=== PATIENT | female | born 1965 | race Caucasian/White ===

== ENCOUNTER 2022-10-07 11:08 | Outpatient (CLI) | payer OTHER, SELFPAY ==
[2022-10-07 09:51] LABS: Albumin* 4.5 g/dL (3.3-5.0); Chloride* 103 mmol/L (96-114); Sodium* 139 mmol/L (135-149)
[2022-10-07 09:52] LABS: Potassium* 4.1 mmol/L (3.6-5.1)
[2022-10-07 09:53] LABS: Cholesterol* 174 mg/dL (90-199)
[2022-10-07 09:54] LABS: Alanine Aminotransferase* 53 U/L (4-35); Alkaline Phosphatase* 96 U/L (40-150); Aspartate Amino Transferase* 39 U/L (12-35); Bilirubin Direct* 0.2 mg/dL (0.0-0.5); Bilirubin Total* 0.6 mg/dL (0.1-1.5); Blood Urea Nitrogen* 12 mg/dL (7-30); Calcium* 9.2 mg/dL (8.4-10.6); Carbon Dioxide* 28 mmol/L (20-32); Creatinine* 0.6 mg/dL (0.5-1.5); Estimated Glomerular Filt Rate 104 ml/min; Glucose* 95 mg/dL (60-115); Total Protein* 7.1 g/dL (6.0-8.3); Triglycerides* 146 mg/dL (40-149)
[2022-10-07 09:55] LABS: HDL Cholesterol* 61 mg/dL (>=50); LDL Cholesterol Calculated 84 mg/dL (<100)
== END 2022-10-07 11:09 | disposition home or self-care (01) ==
PROVIDERS: PCP Family Medicine; Visit Provider Family Medicine
DX: Z01.419 Encounter for gynecological examination (general) (routine) without abnormal findings (principal); E78.5 Hyperlipidemia, unspecified; E66.9 Obesity, unspecified; I10 Essential (primary) hypertension; K76.0 Fatty (change of) liver, not elsewhere classified
CPT/HCPCS: 80053; 80061; 80076

== ENCOUNTER 2022-12-30 21:04 | Outpatient (CLI) | payer OTHER, SELFPAY ==
--- NOTE | 2023-01-19 08:53 | W.PM.SLEEP ---
Sleep Study Details Details Interpreting Provider: Chago Date of Sleep Study: 12/30/22 Sleep Study Details: STUDY TYPE:? Hospital ? BMI:? 36.4 ORDERING PROVIDER:? Jaye INDICATION:? Concerns about sleep apnea ? SLEEP SUMMARY:? 422 total minutes of sleep time, efficiency 84.7, arousal index 7.4 RESPIRATORY SUMMARY:? AHI 9.5, RDI 12.2 Supine AHI 3 no supine REM sleep was seen Nonsupine AHI 10.2, nonsupine REM AHI 21.7 PERIODIC LIMB MOVEMENTS OF SLEEP:? None CARDIAC:? Awake 90, asleep 85, PVCs were noted IMPRESSION:? Mild obstructive sleep apnea dependent on the nonsupine position RECOMMENDATION: Positional therapy would be reasonable to consider however I would favor trial of treatment with either AutoSet CPAP or dental appliance. Weight loss is also indicated.
== END 2022-12-30 21:05 | disposition home or self-care (01) ==
LOC: SLEEP 21:04
PROVIDERS: PCP Family Medicine; Visit Provider Family Medicine
DX: G47.33 Obstructive sleep apnea (adult) (pediatric) (principal)
CPT/HCPCS: 95810

== ENCOUNTER 2023-04-21 14:51 | Outpatient (CLI) | payer OTHER, SELFPAY ==
--- NOTE | 2023-04-21 15:00 | CRLHL7_ITS ---
For Patients: As a result of the Cures Act, medical imaging exams and procedure reports are released immediately into your electronic medical record. You may view this report before your referring provider. If you have questions, please contact your health care provider. BILATERAL SCREENING MAMMOGRAM WITH COMPUTER-AIDED DETECTION AND TOMOSYNTHESIS TECHNIQUE: CC and MLO views were obtained. These mammographic images have been obtained using full-field digital technique. These mammographic images were interpreted with the benefit of computer-aided detection. Breast Tomosynthesis was used in this interpretation. COMPARISON FILM: 11/19/21, 11/08/19, 12/20/17. FINDINGS: There are scattered areas of fibroglandular density IMPRESSION: There is no radiographic evidence for malignancy. ASSESSMENT: BI-RADS Category 1: Negative RECOMMENDATION: Routine screening mammogram in 1 year. A lay language report of this examination will be provided to the patient. Marco Lundy M.D. Diagnostic Radiologist [email or web address] Transcribed: 4:58 p.mSeth zarco/Dictated by: Marco Lundy MD @ 04/22/2023 1:10:00 PM (Electronically Signed)
== END 2023-04-21 14:52 | disposition home or self-care (01) ==
PROVIDERS: PCP Family Medicine; Visit Provider Family Medicine
DX: Z12.31 Encounter for screening mammogram for malignant neoplasm of breast (principal)
CPT/HCPCS: 77063; 77067

== ENCOUNTER 2023-10-20 08:01 | Outpatient (CLI) | payer OTHER, SELFPAY ==
--- OUTSIDE RECORDS SUMMARY | 2023-10-25 20:32 | XMS_ITS | Clinical Summary ---
Author Name Unknown Organization [facility] Address [place], [place] [address] Care Team Providers Care Maintenance Supervisor Electrical Name Role Phone Ricardo Barros MD Primary Care Provider Allergies Active Allergy Reactions Criticality Noted Date Comments Clindamycin Rash 12/18/2014 Active Problems Problem Noted Date Diagnosed Date Family history of malignant neoplasm of gastrointestinal tract 12/18/2014 Overview: Colonoscopy 11/2014 rectal polyp repeat in 5 years Social History Tobacco Use Types Packs/Day Years Used Date Smoking Tobacco: Former Alcohol Use Standard Drinks/Week Comments Not Asked 0 (1 standard drink = 0.6 oz pur e alcohol) Sex and Gender Information Value Date Recorded Sex Assigned at Not on file Gender Identity Not on file Sexual Orientation Not on file Obstetrics History Last Filed Vital Signs Vital Sign Reading Time Taken Comments Blood Pressure 117/78 12/18/2014 9:24 AM TIP BANDER Pulse 90 12/18/2014 9:24 AM TIP BANDER Temperature - - Respiratory Rate - - Oxygen Saturation 95% 12/18/2014 9:24 AM TIP BANDER Inhaled Oxygen Concentration - - Weight - - Height - - Body Mass Index - - Plan of Treatment Health Maintenance Due Date Last Done Comments COVID-19 vaccine series (#1) 04/29/1964 Tdap 1974 Depression screening for age 12+ 1975 HIV for age 15-65 1978 BMI (ht and wt on same day) for age 18+ 1981 Hepatitis C screening for ag e 18-79 1981 Tetanus booster 1983 Lipids for age 45-75 2008 Mammogram for age 45-75 2008 Zoster (shingles) series for age 50+ (1 of 2) 2013 Colonoscopy through age 75 12/19/201912/18, 12/18/2014 Pap test for age 21-65 02/15/2022 9, 02/15/2019, 03/24/2011 Influenza for age 50-64 06/18/2023 Pneumococcal series for age 6-64 Aged Out No longer eligible b ased on patient's age to complete this topic Care Teams Maintenance Supervisor Electrical Relationship Specialty Start Date End Date Ricardo Barros MD PCP - General Family Practice 03/30/11
== END 2023-10-20 08:02 | disposition home or self-care (01) ==
LOC: NFLDREF 10-25 20:31
PROVIDERS: PCP Family Medicine; Referring Provider Family Medicine; Visit Provider Family Medicine
DX: E55.9 Vitamin D deficiency, unspecified (principal); E78.5 Hyperlipidemia, unspecified; I10 Essential (primary) hypertension; R53.83 Other fatigue
CPT/HCPCS: 80053; 80061; 82306; 84443

== ENCOUNTER 2023-12-30 15:48 | Outpatient (CLI) | payer OTHER, SELFPAY ==
--- NOTE | 2023-12-30 16:00 | XR_ITS ---
Patient: LIAT TRUJILLO Facility:?[facility] Patient ID:?[id number] Site Patient ID:?[id number]. Site :?[id number] Study:?XRay-Chest 2V-12/30/2023 4:24:49 PM Ordering Physician:?DR. BENITEZ Final Report: INDICATION: Chronic cough TECHNIQUE: Chest 2 views COMPARISON: None FINDINGS: Cardiovascular and mediastinum: Cardiac silhouette is mildly prominent. Lungs and pleural spaces: Lungs are clear. No sign of infiltrate or mass. No sign of pleural effusion. No pneumothorax. Bones and soft tissues: Postop changes soft tissues upper abdomen. IMPRESSION: No acute findings. Dictated by Marco Lundy MD @ 12/31/2023 10:40:39 AM Signed by:?Marco Lundy MD @12/31/2023 10:40:39 AM (Electronic Signature)
== END 2023-12-30 15:49 | disposition home or self-care (01) ==
LOC: RAD 15:49
PROVIDERS: PCP Family Medicine; Visit Provider Internal Medicine Pulmonary Disease
DX: R05.3 Chronic cough (principal)
CPT/HCPCS: 71046

== ENCOUNTER 2024-02-02 14:33 | Outpatient (CLI) | payer OTHER, SELFPAY ==
--- OUTSIDE RECORDS SUMMARY | 2024-02-02 14:36 | XMS_ITS | Clinical Summary ---
Author Name Unknown Organization [facility] Address [place], [place] [address] Care Team Providers Care Billet Checker Name Role Phone Ricardo Barros MD Primary [...] Comments Blood Pressure 117/78 12/18/2014 9:24 AM VENEER SORTER Pulse 90 12/18/2014 9:24 AM VENEER SORTER Temperature - - Respiratory Rate - - Oxygen Saturation 95% 12/18/2014 9:24 AM VENEER SORTER Inhaled Oxygen Concentration - - Weight - - Height - - Body Mass Index - - Plan of Treatment Health Maintenance Due Date Last Done Comments Tdap 1974 Depression screening for age 12+ [...] for age 21-65 02/15/2022 9, 02/15/2019, 03/24/2011 COVID-19 vaccine series (2022-24 season) 2023 Influenza for age 50-64 06/18/2024 Pneumococcal series for age 6-64 Aged Out No longer eligible b ased on patient's age to complete this topic Procedures Procedure Name Priority Date/Time Associated Diagnosis Comments DREDGE PIPE OPERATOR THIN PREP PAP SCREEN IMAGED Routine 02/15/2019 1:35 PM CDT from Last 3 Months or Most Recently Relevant to Health Maintenance Results * DREDGE PIPE OPERATOR THIN PREP PAP SCREEN IMAGED (02/15/2019 1:35 PM CDT) Case Report Gynecologic Cytology Report ? Case: [id number] ? Authorizing Provider: ??Gabrielle Cee MD ??Collected: ? 02/15/2019 1335 ? Ordering Location: ? [facility] ?Received: ?02/17/2019 1234 ? First Screen: ?Lowell Blevins ? Specimen: ?DREDGE PIPE OPERATOR ThinPrep Vial Screening, Cervical/Vaginal ? 02/25/2019 7:03 AM CDT [facility] INTERPRETATION/ RESULT NEGATIVE FOR INTRAEPITHELIAL LESION OR MALIGNANCY (NIL) (none) 02/25/2019 7:03 AM [facility] IMEN ADEQUACY Satisfactory for evaluation Endocervical cells cannot be evaluated due to severe atrophy 02/25/2019 7:03 AM T [facility] HPV REQUEST HPV and PAP 02/25/2019 7:03 AM T [facility] Automated Review Successful 02/25/2019 7:03 AM T [facility] Comment:Specimen processed s uccessfully by automated assistant auto center manager device, TelikPrep Imaging System, [email or web address] ANCILLARY TESTING DREDGE PIPE OPERATOR HPV Ordered, Please see separate report 02/25/2019 7:03 AM T [facility] Note The pap test is a screening technique, not a diagnostic procedure. ??It is used primarily to screen for squamous cancers and precursor lesions. ??Published studies have shown that it is subject to both false negative and false positive results. ??The pap test should not be used as the sole means to diagnose or exclude pre-malignant and malignant lesions. Cytology is screened and interpreted at [facility] - [address], [place] [address] and [facility] - [address]; [place] [address] [address] [facility] - [address]; [place] [address] and [facility] [address]; [place] [address] 02/25/2019 7:03 AM T [facility] Other (Cervical/Vagina l) 02/15/2019 1:35 PM CDT 02/17/2019 12:34 PM CDT Gabrielle Cee MD PATHOLOGY/CYTOLO GY [facility] [address] [place] [address], from Last 3 Months or Most Recently Relevant to Health Maintenance Care Teams Billet Checker Relationship Specialty Start Date End Date Ricardo Barros MD PCP - General Family Practice 03/30/11
== END 2024-02-02 14:34 | disposition home or self-care (01) ==
PROVIDERS: PCP Family Medicine; Visit Provider Family Medicine
DX: M25.50 Pain in unspecified joint (principal); R21 Rash and other nonspecific skin eruption; I10 Essential (primary) hypertension
CPT/HCPCS: 86039; 86140; 86200; 86431

== ENCOUNTER 2024-02-23 11:14 | Outpatient (CLI) | payer OTHER, SELFPAY ==
--- OUTSIDE RECORDS SUMMARY | 2024-02-25 11:19 | XMS_ITS | Clinical Summary ---
Author Name Unknown Organization [facility] Address [place], [place] [address] Care Team Providers Care Shine Worker Name Role Phone Ricardo Barros MD Primary [...] Comments Blood Pressure 117/78 12/18/2014 9:24 AM MANAGER UNDERWRITING Pulse 90 12/18/2014 9:24 AM MANAGER UNDERWRITING Temperature - - Respiratory Rate - - Oxygen Saturation 95% 12/18/2014 9:24 AM MANAGER UNDERWRITING Inhaled Oxygen Concentration - - Weight - [...] Procedure Name Priority Date/Time Associated Diagnosis Comments PLUMBER MAINTENANCE THIN PREP PAP SCREEN IMAGED Routine 02/15/2019 1:35 PM CDT from Last 3 Months or Most Recently Relevant to Health Maintenance Results * PLUMBER MAINTENANCE THIN PREP PAP SCREEN IMAGED (02/15/2019 1:35 PM CDT) Case Report Gynecologic Cytology Report ? Case: [id number] ? Authorizing Provider: ??Gabrielle Cee MD ??Collected: ? 02/15/2019 1335 ? Ordering Location: ? [facility] ?Received: ?02/17/2019 1234 ? First Screen: ?Lowell Blevins ? Specimen: ?PLUMBER MAINTENANCE ThinPrep Vial Screening, Cervical/Vaginal ? 02/25/2019 7:03 AM CDT [facility] INTERPRETATION/ RESULT NEGATIVE FOR INTRAEPITHELIAL LESION OR MALIGNANCY (NIL) (none) 02/25/2019 7:03 AM T [facility] IMEN ADEQUACY Satisfactory for evaluation Endocervical cells cannot be evaluated due to severe atrophy 02/25/2019 7:03 AM T [facility] HPV REQUEST HPV and PAP 02/25/2019 7:03 AM T [facility] Automated Review Successful 02/25/2019 7:03 AM T [facility] Comment:Specimen processed s uccessfully by automated metalizing supervisor device, [employer]ro JockPrep Imaging System, [employer] ANCILLARY TESTING PLUMBER MAINTENANCE HPV Ordered, Please see separate report 02/25/2019 7:03 AM T [facility] Note The pap test is a [...] lesions. Cytology is screened and interpreted at [facility] - [address], [place] [address] and [facility] - [address]; [place] [address] and [facility] - [address]; [place] [address] and [facility] [address]; [place] [address] 02/25/2019 7:03 AM T [facility] Other (Cervical/Vagina l) 02/15/2019 1:35 PM CDT 02/17/2019 12:34 PM CDT Gabrielle Cee MD PATHOLOGY/CYTOLO GY [facility] [address] [place] [address], from Last 3 Months or Most Recently Relevant to Health Maintenance Care Teams Shine Worker Relationship Specialty Start Date End Date Ricardo Barros MD PCP - General Family Practice 03/30/11
== END 2024-02-23 11:15 | disposition home or self-care (01) ==
LOC: NFLDREF 02-25 11:17
PROVIDERS: PCP Family Medicine; Referring Provider Family Medicine; Visit Provider Family Medicine
DX: I10 Essential (primary) hypertension (principal)
CPT/HCPCS: 80048

== ENCOUNTER 2024-05-18 15:05 | Outpatient (CLI) | payer OTHER, SELFPAY ==
--- OUTSIDE RECORDS SUMMARY | 2024-05-18 15:08 | XMS_ITS | Clinical Summary ---
Author Organization [facility] Address [place], [place] [address] Care Team Providers Care Passenger Representative Name Role Phone Ricardo Barros MD Primary [...] Comments Blood Pressure 117/78 12/18/2014 9:24 AM SPECIAL INVESTIGATION UNIT INVESTIGATOR Pulse 90 12/18/2014 9:24 AM SPECIAL INVESTIGATION UNIT INVESTIGATOR Temperature - - Respiratory Rate - - Oxygen Saturation 95% 12/18/2014 9:24 AM SPECIAL INVESTIGATION UNIT INVESTIGATOR Inhaled Oxygen Concentration - - Weight - [...] Procedure Name Priority Date/Time Associated Diagnosis Comments EMPLOYEE BENEFITS SPECIALIST THIN PREP PAP SCREEN IMAGED Routine 02/15/2019 1:35 PM CDT from Last 3 Months or Most Recently Relevant to Health Maintenance Results * EMPLOYEE BENEFITS SPECIALIST THIN PREP PAP SCREEN IMAGED (02/15/2019 1:35 PM CDT) Case Report Gynecologic Cytology Report ? Case: [id number] ? Authorizing Provider: ??Gabrielle Cee MD ??Collected: ? 02/15/2019 1335 ? Ordering Location: ? [facility] ?Received: ?02/17/2019 1234 ? First Screen: ?Lowell Blevins ? Specimen: ?EMPLOYEE BENEFITS SPECIALIST ThinPrep Vial Screening, Cervical/Vaginal ? 02/25/2019 7:03 AM CDT [facility] INTERPRETATION/ RESULT NEGATIVE FOR INTRAEPITHELIAL LESION OR MALIGNANCY (NIL) (none) 02/25/2019 7:03 AM T [facility] IMEN ADEQUACY Satisfactory for evaluation Endocervical cells cannot be evaluated due to severe atrophy 02/25/2019 7:03 AM CDT [facility] HPV REQUEST HPV and PAP 02/25/2019 7:03 AM T [facility] Automated Review Successful 02/25/2019 7:03 AM T [facility] Comment:Specimen processed s uccessfully by automated asset management lead device, WebeePrep Imaging System, [employer] ANCILLARY TESTING EMPLOYEE BENEFITS SPECIALIST HPV Ordered, Please see separate report 02/25/2019 7:03 AM T [facility] Note The pap test is a [...] lesions. Cytology is screened and interpreted at [facility] - [address], [place] [address] and [facility] - [address]; [place] [address] and [facility] - [address]; [place] [address] and [facility] [address]; [place] [address] 02/25/2019 7:03 AM CDT [facility] Other (Cervical/Vagina l) 02/15/2019 1:35 PM CDT 02/17/2019 12:34 PM CDT Gabrielle Cee MD PATHOLOGY/CYTOLO GY [facility] [address] [place] [address], from Last 3 Months or Most Recently Relevant to Health Maintenance Care Teams Passenger Representative Relationship Specialty Start Date End Date Ricardo Barros MD PCP - General Family Practice 03/30/11
--- OUTSIDE RECORDS SUMMARY | 2024-05-18 15:08 | XMS_ITS | Continuity of Care Document ---
Author Organization [facility] Address [address] [place] [address] Phone Care Team Providers Care Sign Artist Name Role Phone Jimmy HOLT, Oswaldo Unavailable Unavailable Allergies, Adverse Reactions, Alerts Substance Reaction Status Criticality Cephalosporins Active No Informatio n Medications Medication Instructions Dosage Effective Dates (start - stop) Status Comments calcium carbonate 600 mg-vitamin D3 10 mcg (400 unit) capsule take 1 Capsule by Oral route every day 1 Capsule - Active Yuvafem 10 mcg vaginal tablet insert 1 tablet by vaginal route 2 times every week 10 MCG - Active finasteride 5 mg tablet take 1/2 tablet by oral route every day - Active fluconazole 200 mg tablet take 1 tablet by oral route every OTHER day - Active Efudex 5 % topical cream apply by topica l route every week a sufficient amount to cover the lesions in the affected area(s) Not Available - Active fluticasone propionate 50 mcg/actuation nasal spray,suspension inhale 2 spray by intranasal route every day in each nostril as needed 100 MCG - Active hydrochlorothiazide 25 mg tablet take 1 tablet by oral route every day 25 MG - Active loratadine 10 mg tablet take 1 tablet by oral route every day 10 MG - Active losartan 100 mg tablet take 1 tablet by oral route every day 100 MG - Active nystatin-triamcinolone 100,000 unit/g-0.1 % topical cream apply by topical route 2 times every day to the affected area(s) in the morning and evening 0.00 - Active omeprazole 40 mg capsule,delayed release take 1 capsule by oral route every day before a meal as needed 40 MG - Active Afrin (oxymetazoline) 0.05 % nasal mist 2 spays every 12 hours as needed - Active simvastatin 20 mg tablet take 1 tablet b y oral route every day in the evening 20 MG - Active trazodone 50 mg tablet take 1/2 Tablet by oral route at bedtime as needed - Active Procedures Procedure Date Office/Outpatient Visit, New Routine Venipuncture CCP Antibody Results Test Name Date and Time Measure Units Reference Range Abnormal Flag Status Commen ts Panel Description: CCP Final cCP 14:08:00 0.0 U/mL 0.0-5.0 Final Advance Directives Directive Yes / No Effective Date File Name No Information Encounters Encounter Description Practice Location Reason(s) For Visit Diagnoses Date Provider Providers Copied on Encounter Office/Outpa tient Visit, [facility], [address], [place], [address], [place] tel:[phone] [facility], ene of CTD (chief complaint) Pain in left handPain in right handRash Jimmy Chacon. [facility] [address], [place], [address], [place]. tel:[phone] Referring Provider: Oswaldo Wilson, [facility] [address], [place], [address]. tel:[phone] Family History Family Member Type Diagnosis Age At Onset Problem No family history of Lupus e rythematosus Payers Payer name Insurance type Covered libertarian ID Authorisaa robert(s) R CI [id number] Social History Type Description Quantity Date Captured Comments Alcohol Use Details 1-2 weekly Caffeine Use Details Tobacco Use Status Current non-smoker Smoking Status Never smoker Non-Smoking Tobacco Use Details : No Details Available : No Details Available Sex Female Vital Signs Date / Time: Height Weight BMI Pulse Rate Blood Pressure Temperature Respiratory Rate Body Surface Area Head Circumference Head Circ. Percentile Wt./Joseph. Percentile BMI percentile Pulse Ox Inhaled Ox 11:02 AM 65.35 in 97.976 kg (216.00 lbs) 35.5 6 kg/m eter (2) 127/78 mm[Hg] 97.40 F Chief Complaint And Reason For Visit From encounter dated '03/29/2024 11:00'. eval of CTD (chief complaint) Reason For Referral Reason For Referral No Information History Of Present Illness Encounter Date Complaint History Of Prese nt Illness eval of CTD Functional Status Date Functional Assessmen t Pain Score 2/10 Instructions Date Instruction Additional Infor mation No Information Assessments Type Assessment Date assessment Pain in left hand assessment Pain in right hand assessment Rash Patient Care Teams Name Effective Dates (start - stop) Status Members No Information
== END 2024-05-18 15:06 | disposition home or self-care (01) ==
LOC: NFLDREF 15:07
PROVIDERS: PCP Family Medicine; Visit Provider Family Medicine
DX: I10 Essential (primary) hypertension (principal); R73.01 Impaired fasting glucose; K76.0 Fatty (change of) liver, not elsewhere classified
CPT/HCPCS: 80053

== ENCOUNTER 2024-05-24 12:38 | Outpatient (RCR) | payer OTHER, SELFPAY ==
--- NOTE | 2024-05-24 16:47 | OT.OPOE ---
OT Outpatient Ortho Eval OT Outpatient Ortho Eval* Start: 05/24/24 07:44 Freq: Status: Active Protocol: Document 05/24/24 07:44 JOCELYNE (Rec: 05/24/24 16:39 GARFIELDShyam [id number]) E-signed By Erika Gramajo, OTR/L, CLT OT OP Ortho Eval Details Complexity Complexity Medium Insurance Information Other Insurance R [facility] Outpatient History/Precautions Current Condition/Medical Diagnosis Referring Provider Dr. Gabrielle Cee Medical Diagnoses Pain in unspecified hand, M79. 643 Stiffness of unspecified hand, not elsewhere classified, M25 .649 Treatment Diagnosis Hand pain in right, M79.641 Hand pain in left, M79.642 Stiffness of right hand, M25. 641 Stiffness of left hand, M25. 642 Medical Conditions HTN Other Conditions Elevated fasting blood sugar ( Acute)-R73.01 - Impaired fasting glucose (ICD-10) Atopic dermatitis (Chronic) [facility], same diagnosis as Dr. Avalos Yeast dermatitis (Acute)-B37.2 - Candidiasis of skin and nail (ICD-10) Chronic cough (Chronic)-Did see graduate recruiter Dr. Lopes, does not have asthma, higher dose of omeprazole &Tessalon recommend Joint pain (Chronic)-Hands again did see casting associate March 2024 no sign of connective tissue disorder rheumatoid disorder M25.50 - Pain in unspecified joint (ICD-10) Eczema (Acute) L30.9 - Dermatitis, unspecified (ICD-10) Hair thinning (Acute) L65.9 - Nonscarring hair loss, unspecified (ICD-10) Wrist pain, left (Acute) M25.532 - Pain in left wrist ( ICD-10) Sleep apnea (Chronic 01/2023) Treated with CPAP Leslie: Mild obstructive sleep apnea would recommend trial of CPAP G47.30 - Sleep apnea, unspecified (ICD-10) Insomnia (Acute) G47.00 - Insomnia, unspecified (ICD-10) Situational mixed anxiety and depressive disorder (Acute) F43.23 - Adjustment disorder with mixed anxiety and depressed mood (ICD-10) Congestion of nasal sinus ( Acute) R09.81 - Nasal congestion (ICD -10) Fatigue (Chronic) R53.83 - Other fatigue (ICD-10 ) Vitamin D deficiency (Acute) E55.9 - Vitamin D deficiency, unspecified (ICD-10) Hypertension (Chronic) I10 - Essential (primary) hypertension (ICD-10) Vasomotor symptoms due to menopause (Chronic) HRT from OBGYN N95.1 - Menopausal and female climacteric states (ICD-10) Allergic rhinitis (Chronic) J30.9 - Allergic rhinitis, unspecified (ICD-10) Obesity with body mass index ( BMI) of 30.0 to 39.9 (Chronic) E66.9 - Obesity, unspecified ( ICD-10) Hyperlipidemia (Chronic) E78.5 - Hyperlipidemia, unspecified (ICD-10) Steatosis of liver (Acute 2020) K76.0 - Fatty (change of ) liver, not elsewhere classified (ICD-10) Multiple actinic keratoses ( Chronic) [facility] Medication List: calcium carbonate-vitamin D3 600 mg-10 mcg (400 unit) 600.1 caps PO DAILY cholecalciferol (vitamin D3) 25 mcg PO QDAY estradiol-levonorgestrel 0.045 -0.015 mg/24 hr (Climara Pro) 1 patch transdermal QWEEK finasteride 2.5 mg (1/2 x 5 mg ) PO QDAY fluticasone propionate 50 mcg/ actuation 2 sprays intranasal QDAY PRN hydrochlorothiazide 25 mg PO QAM loratadine 10 mg PO QDAY losartan 100 mg PO QDAY omeprazole 40 mg PO QDAY oxymetazoline 0.05% (Afrin ( oxymetazoline)) 2 sprays intranasal Q12H PRN simvastatin 20 mg PO DAILY trazodone 25 mg (1/2 x 50 mg) PO QHS PRN Medical/Functional History Medical History Reviewed Yes Prior Level of Function/Mobility , 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 Patient did see casting associate March 2024 no sign of connective tissue disorder rheumatoid disorder. Pain is bilaterally, reports that all her fingers feel stiff, no reports of tingling or numbness, no burning sensation, bilaterally sensation is intact to light touch, pressure, hot/cold ( temperature). Pain Assessment Pain Pain Yes Pain Comments 3-6/10 (ranges) varies depending on activity Hand Pinch/Respite Worker Strength Hand Pinch/Respite Worker Strength Hand Pinch/Respite Worker Strength Left Hand,Right Hand Left Hand Respite Worker Strength Position 1 in Elbow 50 Flexion (lbs) Respite Worker Strength Position 2 in Elbow 59 Extension (lbs) Lateral Pinch Strength (lbs) 16 Three Point Pinch (lbs) 14 Tip Pinch Strength (lbs) 12 Right Hand Respite Worker Strength Position 1 in Elbow 59 Flexion (lbs) Respite Worker Strength Position 2 in Elbow 65 Extension (lbs) Lateral Pinch Strength (lbs) 19 Three Point Pinch (lbs) 19 Tip Pinch Strength (lbs) 16 Comments Comments middle finger of both the L and R will lock up/trigger but it did not do this on EVAL Upper Extremity Special Tests Elbow Cozens Test Negative Left,Negative Right Tenosynovitis Wrist Finklestein Test Positive Left,Positive Right Degenerative Arthritis Hand Trapeziometacarpal Joint Grind Test Positive Left,Positive Right Median Nerve-Carpal Tunnel Wrist Phalen Test Negative Left,Negative Right Wrist Tinel Test Negative Left,Negative Right Durkan's Test Negative Left,Negative Right Ulnar Nerve Froment's Sign Negative Left,Negative Right OT Problems Problems Problems Pain,Lifting,Gripping,Pinching Problems Comments Respite Worker/pinches are above the norms for age/gender. Patient reports that sometimes she drops items out of her hand which is surprising to her. Patient Potential Good Assessment Assessment Assessment 58-year-old female patient with chronic bilateral hand pain, referred to skilled OT by her PCP. Patient did see casting associate March 2024 no sign of connective tissue disorder rheumatoid disorder. Pain is bilaterally, reports that all her fingers feel stiff, no reports of tingling or numbness, no burning sensation, bilaterally sensation is intact to light touch, pressure, hot/cold ( temperature). Patient is positive for CMC arthritis, and most likely has arthritis to multiple PIP joints, she reports that her middle fingers lock on her ( bilateral) but therapist was unable to see/reproduce a trigger finger at time of Eval . Patient is losing her job and therefore her health insurance and requested a detailed HEP today, and that she would try doing therapy on her own without follow up sessions. Patient was given therapists' business card if she had any questions. Occupational Therapy Treatment Plan - OP Potential Rehabilitation Potential Good Barriers Barriers to goal attainment None noted Set Goals Goals Set with Patient Yes Goals Goals 1. Patient will verbalize 3 activity modifications to decrease abusive/overloading of the tendons. 2. Through activity participation in skilled therapy sessions, and consistency in performing a customized HEP, patient will improve capacity of tendons and muscles to manage load in order to have less pain with ADLs, work, leisure activities and IADLs. Target Date 12 weeks Treatment Plan Treatment Plan Evaluation,Edema Control, Iontophoresis,Manual Therapy, Ultrasound,Therapeutic Exercise,Self Care/Home Management,Education Expected Frequency As Needed Expected Duration 12 Home Program Home Program Home Program Initiated Home Program Specifics Education on Ergonomics: Using electric openers for large jars and extended handles for smaller jars and bottles. Using a backpack or shopping trolley to avoid carrying heavy bags in your hands. Take more frequent breaks from tasks that put more strain on your joints. Use both hands for a task instead of just one hand. Switch to door handles verses doorknobs Use padding to build up jukebox operator on items such as knives and forks or pens, to ease the pressure on the smaller joints in the hand. Education on Exercise: Explained to patient that joints need to be exercised regularly to keep them healthy . Exercise can help to ease stiffness and improve line tender flakeboard strength. Activities that put excessive strain on your hand joints are to be avoided (when possible). For example: heavy lifting and carrying, Yoga or Pilates when you place your body weight in load/weight bearing positions (supporting your body weight with your hands). Page 17 in the Osteoarthritis of the hand and wrist packet. 2 sets of 10 (done twice per day with at least 6 hours in between sets) Finger Strengthening -Begin with the palm of your hand on a small wash cloth or hand towel. -Spread your fingers wide, then pull your fingers in ( together) while squeezing the towel in between your fingers. Repeat 10 times Finger Stretching (TENDON GLIDES) -Start with your fingers extended straight out. -Make a hook fist; return to a straight fist. -Make a full fist; return to a straight hand. -Make a straight fist; return to a straight hand. - Repeat this sequence 10 times. Thumb Stretch Hold your hand out in front of you, as if you?re saying STOP . Begin with your thumb positioned outward, then move your thumb across your palm and then back to the starting positioning again. Repeat [address] times[address] your forearm on a flat surface, like a countertop or table. Hand your hand over the edge, palm face down. A rolled-up towel under your wrist may provider increased comfort. Keeping your fingers relaxed, move your hand upward until you feel a gentle stretch, then return to the starting position. Wrist Twist Bend your elbow to 90 degrees w/your palm facing down. Rotate your forearm, so that your palm faces up and then down. You can stand or sit to do this. Hand Wave Support your forearm on a table on a rolled up towel for padding or on your knee, thumb facing upward. Move the wrist up and down through its full range of motion, as if you are waving. Patient was provided with Theraputty (light and medium resistance) and also given handouts for PowerWeb/Flexbar (red-medium soft resistance) if she chooses to purchase these items, therapist gave patient handouts for each of these. Discussed the importance of chest expansion, scapular retraction and mid/low back postural exercises 5-6x/week. Certification Certification Statement I Certify That: Therapy Services Provided, Therapy Plan Established, Therapy Plan Reviewed Certification Information Clinic ID # [id number] Initial Certification Date 05/24/24 Recertification Due Date 08/22/24 Provider Signature Required Yes Provider Signature Shows Agreement With POC & Medical Necessity Physician NPI Number Write NPI# Here Physician Comment/Change Comment or Changes Physician Signature & Date Requested Please Sign/Date Here
== END 2024-08-09 15:20 | disposition home or self-care (01) ==
PROVIDERS: PCP Family Medicine; Visit Provider Family Medicine
DX: M79.643 Pain in unspecified hand (principal); M25.649 Stiffness of unspecified hand, not elsewhere classified; M79.641 Pain in right hand; M79.642 Pain in left hand; M25.641 Stiffness of right hand, not elsewhere classified; M25.642 Stiffness of left hand, not elsewhere classified; Z51.89 Encounter for other specified aftercare
CPT/HCPCS: 97110; 97166; X5282

== ENCOUNTER 2024-07-10 12:46 | Outpatient (CLI) | payer OTHER, SELFPAY ==
--- OUTSIDE RECORDS SUMMARY | 2024-07-10 12:49 | XMS_ITS | Clinical Summary ---
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 CREW LEADER Pulse 90 12/18/2014 9:24 AM CIRCULATION CREW LEADER Temperature - - Respiratory Rate - - Oxygen Saturation 95% 12/18/2014 9:24 AM CIRCULATION CREW LEADER Inhaled Oxygen Concentration - - Weight - [...] 02/15/2019, 03/24/2011 COVID-19 vaccine series (2022-24 season) 2024 Influenza for age 50-64 06/18/2024 Pneumococcal series for age 6-64 Aged Out No longer eligible b ased on patient's age to complete this topic Procedures Procedure Name Priority Date/Time Associated Diagnosis Comments THERAPIST THIN PREP PAP SCREEN IMAGED Routine 02/15/2019 1:35 PM CDT from Last 3 Months or Most Recently Relevant to Health Maintenance Results * THERAPIST THIN PREP PAP SCREEN IMAGED (02/15/2019 1:35 PM CDT) Case Report Gynecologic Cytology Report ? Case: [id number] ? Authorizing Provider: ??Gabrielle Cee MD ??Collected: ? 02/15/2019 1335 ? Ordering Location: ? [facility] ?Received: ?02/17/2019 1234 ? First Screen: ?Lowell Blevins ? Specimen: ?THERAPIST ThinPrep Vial Screening, Cervical/Vaginal ? 02/25/2019 7:03 AM CDT [facility] INTERPRETATION/ RESULT NEGATIVE FOR INTRAEPITHELIAL LESION OR MALIGNANCY (NIL) (none) 02/25/2019 7:03 AM T [facility] IMEN ADEQUACY Satisfactory for evaluation Endocervical cells cannot be evaluated due to severe atrophy 02/25/2019 7:03 AM T [facility] HPV REQUEST HPV and PAP 02/25/2019 7:03 AM [facility] Automated Review Successful 02/25/2019 7:03 AM T [facility] Comment:Specimen processed s uccessfully by automated tax accounting assistant device, WistiaPrep Imaging System, [employer] ANCILLARY TESTING THERAPIST HPV Ordered, Please see separate report 02/25/2019 7:03 AM T [facility] Note The pap test is [...] lesions. Cytology is screened and interpreted at [facility] - [address], [place] [address] and [facility] - [address]; [place] [address] and [facility] - [address]; [place] [address] and [facility] [address]; [place] [address] 02/25/2019 7:03 AM T [facility] Other (Cervical/Vagina l) 02/15/2019 1:35 PM CDT 02/17/2019 12:34 PM CDT Gabrielle Cee MD PATHOLOGY/CYTOLO GY [facility] [address] [place] [address], from Last 3 Months or Most Recently Relevant to Health Maintenance Care Teams Data Typist Relationship Specialty Start Date End Date Ricardo Barros MD PCP - General Family Practice 03/30/11
--- OUTSIDE RECORDS SUMMARY | 2024-07-10 12:49 | XMS_ITS | Continuity of Care Document ---
Author Organization [facility] Address [address] [place] [address] Phone Care Team Providers Care Regional Safety Manager Name Role Phone Jimmy HOLT, Oswaldo Unavailable [...] [facility], [address], [place], [address], [place] tel:[phone] [facility], ene of CTD (chief complaint) Pain in left handPain in right handRash Jimmy Chacon. [facility] [address], [place], [address], [place]. tel:[phone] Referring Provider: Oswaldo Wilson, [facility] [address], [place], [address]. tel:[phone] Family History Family Member Type Diagnosis Age At Onset Problem No family history of Lupus e rythematosus Payers Payer name Insurance type Covered alliance party ID Authorisaa robert(s) R CI [id number] Social History Type Description Quantity Date Captured [...]
--- NOTE | 2024-07-10 13:00 | CRLHL7_ITS ---
For Patients: As a result of the Century Cures Act, medical imaging exams and procedure reports are released immediately into your electronic medical record. You may view this report before your referring provider. If you have questions, please contact your health care provider. BILATERAL SCREENING MAMMOGRAM WITH COMPUTER-AIDED DETECTION AND TOMOSYNTHESIS TECHNIQUE: CC and MLO views were obtained. These mammographic images have been obtained using full-field digital technique. These mammographic images were interpreted with the benefit of computer-aided detection. Breast Tomosynthesis was used in this interpretation. COMPARISON FILM: 04/21/23, 11/19/21, 11/08/19. FINDINGS: There are scattered areas of fibroglandular density IMPRESSION: There is no radiographic evidence for malignancy. ASSESSMENT: BI-RADS Category 2: Benign RECOMMENDATION: Routine screening mammogram in 1 year. A lay language report of this examination will be provided to the patient. Marco Lundy M.D. Diagnostic Radiologist [email or web address] LETICIA/Dictated by: Marco Lundy MD @ 07/18/2024 12:24:00 PM (Electronically Signed)
== END 2024-07-10 12:47 | disposition home or self-care (01) ==
LOC: MAMMO 12:47
PROVIDERS: PCP Family Medicine; Visit Provider Obstetrics & Gynecology
DX: Z12.31 Encounter for screening mammogram for malignant neoplasm of breast (principal)
CPT/HCPCS: 77063; 77067

== ENCOUNTER 2025-04-24 10:02 | Outpatient (CLI) | payer BC, SELFPAY ==
[2025-04-25 19:40] LABS: HPV Source Cervix
== END 2025-04-24 10:03 | disposition home or self-care (01) ==
PROVIDERS: PCP Family Medicine; Visit Provider Obstetrics & Gynecology
DX: Z12.4 Encounter for screening for malignant neoplasm of cervix (principal); Z11.51 Encounter for screening for human papillomavirus (HPV)
CPT/HCPCS: 87624; 87625; 88141; 88142

== ENCOUNTER 2025-07-24 10:10 | Outpatient (CLI) | payer BC, SELFPAY ==
--- NOTE | 2025-07-24 10:15 | CRLHL7_ITS ---
For Patients: As a result of the Century Cures Act, medical imaging exams and procedure reports are released immediately into your electronic medical record. You may view this report before your referring provider. If you have questions, please contact your health care provider. INDICATION: BILATERAL SCREENING MAMMOGRAM, ASYMPTOMATIC 59 Y/O FEMALE COMPARISON: 07/10/2024, 04/21/2023, 11/19/2021 TECHNIQUE: Digital mammogram in CC and MLO projections including computer-aided detection (CAD) and tomosynthesis. BREAST COMPOSITION: There are scattered areas of fibroglandular density. FINDINGS: No suspicious findings. ASSESSMENT: BI-RADS 1 Negative RECOMMENDATION: Annual screening mammogram. A lay language report of this examination will be provided to the patient. Dictated by: Marco Lundy MD @ 07/24/2025 11:18:58 (Electronically Signed)
== END 2025-07-24 10:11 | disposition home or self-care (01) ==
PROVIDERS: Visit Provider Obstetrics & Gynecology
DX: Z12.31 Encounter for screening mammogram for malignant neoplasm of breast (principal)
CPT/HCPCS: 77063; 77067